=== PATIENT | female | born 1950 | race Caucasian/White ===

== ENCOUNTER → 2022-04-23 10:55 | Outpatient (CLI) | payer MEDICARE, OTHER, SELFPAY ==
[2022-04-23 12:07] LABS: COVID19 -Nasal RAPID Negative (Negative)
== END ==
PROVIDERS: Visit Provider Physician Assistant Medical
DX: J39.2 Other diseases of pharynx (principal); Z20.822 Contact with and (suspected) exposure to COVID-19
CPT/HCPCS: 87070; 87635